=== PATIENT | male | born 1980 | race Caucasian/White ===

== ENCOUNTER → 2020-07-24 | Outpatient (CLI) | payer OTHER ==
[~2020-07-24] MED LIST: CIPR5DRO OP; OFLO5DRO33 EACH EAR
== END ==
LOC: CARD 11:46
PROVIDERS: ATTEND Nurse Practitioner Family
DX: R10.13 Epigastric pain (principal)
CPT/HCPCS: 93005

== ENCOUNTER 2020-08-31 05:31 | Outpatient (RCR) | payer OTHER ==
[~2020-08-31] VITALS: Ht 177.8 cm; Wt 117.0 kg
[~2020-08-31 05:31] MED LIST changes: +CETI10CA PO; +OMEP40CA27 PO
== END 2020-08-31 12:34 | disposition home or self-care (01) ==
LOC: PREOP 05:31
PROVIDERS: ATTEND Internal Medicine
DX: Z01.812 Encounter for preprocedural laboratory examination (principal); K21.9 Gastro-esophageal reflux disease without esophagitis; Z20.822 Contact with and (suspected) exposure to COVID-19
CPT/HCPCS: 87635

== ENCOUNTER 2020-09-04 07:34 | Day surgery (SDC) | payer OTHER ==
--- NOTE | 2020-08-30 16:39 | HISTORY AND PHYSICAL ---
DATE OF SERVICE: EGD HISTORY AND PHYSICAL HISTORY: The patient is a 40-year-old white male, who reports a 2-month history of heartburn type symptoms with some intermittent chest pain seems to be worse several hours after the evening meal. Occasionally, this woke him up from sleep. He denies any coughing, choking or dysphagia. He started taking twice a day H2 davidson therapy, but was still having to take several times a day. Symptoms have been a little better since initiation of proton pump inhibitor therapy last week. He denies melena or bright red blood per rectum. He denies any past history of peptic ulcer disease or similar symptoms. He was not aware of any major dietary change, but his weight was down 4.4 pounds over the last month. He reports some numbness over the lateral aspect of the left thumb only. No weakness or loss of dexterity reported. This has been going on for about the last two months. It has not gotten and he is not aware of any associated trauma. PHYSICAL EXAMINATION: GENERAL: Reveals pleasant white male, who did not appear to be in acute distress. VITAL SIGNS: Weight 261.4 pounds, blood pressure 142/94. CHEST: Clear. CARDIOVASCULAR: Regular rate and rhythm without murmur, S3 or S4. Mild epigastric discomfort to palpation noted without mass or organomegaly. No rebound or guarding noted. EXTREMITIES: Reveal no cyanosis, clubbing or edema. There is some subjective loss of sensation over the lateral aspect of the left thumb. 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 Phalen's and Tinel's sign negative. ASSESSMENT AND PLAN: 1. For further investigation of refractory GERD symptoms with chest pain and some weight loss, the patient is set up for EGD evaluation after discussion. 2. Discussed the importance of continued weight loss aid in overall health as well as reflux symptoms. We will continue Prilosec for now 20 mg daily. 3. Focal area of left lateral thumb numbness. Discussed if there was any evidence for progression to return for consideration for nerve conduction studies, but due to the fact that it has not gotten worse, has no other symptoms associated and is focal. We will continue to monitor for now. Continue to monitor conservatively for now. Job ID: [id number] DocumentID: [id number] Dictated Date: 08/30/2020 16:11:04 Vacuum Forming Machine Operator Date: 08/30/2020 16:36:47 Dictated By: ACACIA TAPIA MD
[~2020-09-04] VITALS: Ht 178 cm; Wt 117.0 kg
[2020-09-04] VITALS (12 sets, daily range): BP systolic 112–135; BP diastolic 64–86
[~2020-09-04 07:34] MED LIST changes: +LACTATED RINGERS 1,000 ML IV ONE
[2020-09-04] MEDS ORDERED: D5 LR IV SOLUTION 1,000 ML IV STA (07:47)
[2020-09-04] MEDS ORDERED: LIDOCAINE JELLY 2% 6 ML SYRINGE ONE (07:55)
[2020-09-04] MEDS ORDERED: MIDAZOLAM 5 MG/5 ML (VERSED) VIAL ONE (07:56)
[2020-09-04] MEDS ORDERED: fentaNYL INJ 100 MCG/2 ML AMP ONE (07:56)
[2020-09-04] MEDS ORDERED: HURRICAINE EXT TUBE (BENZOCAINE) ONE (07:56)
[2020-09-04] MEDS ORDERED: MIDAZOLAM 5 MG/5 ML (VERSED) VIAL IV ONE (08:00)
[2020-09-04] MEDS ORDERED: LACTATED RINGERS 1,000 ML IV SCH (08:00)
[2020-09-04] MEDS ORDERED: fentaNYL INJ 100 MCG/2 ML AMP IVP ONE (08:00)
[2020-09-04] MEDS ORDERED: LIDOCAINE JELLY 2% 6 ML SYRINGE MM PRN (08:00)
[2020-09-04] MEDS ORDERED: HURRICAINE EXT TUBE (BENZOCAINE) XX PRN (08:00)
--- NOTE | 2020-09-04 08:39 | Pre-Op Note & Conscious Sedat ---
Pre-Operative Progress Note H&P Reviewed The H&P was reviewed, patient examined and no changes noted. Date H&P Reviewed: Sep 04, 2020 Time H&P Reviewed: 07:55 Conscious Sedation Pre-Proced ASA Score 2 For ASA 3 and 4: Consider anesthesia and medical clearance. Also, for patients with a history of failed moderate sedation consider anesthesia. Airway Lungs Heart ASA score ASA 1: a normal healthy patient ASA 2: a patient with a mild systemic disease (mid diabetes, controlled hypertension, obesity ASA 3: a patient with a severe systemic disease that limits activity (angina, COPD, prior Myocardial infarction) ASA 4: a patient with an incapacitating disease that is a constant threat to life (CHF, renal failure) ASA 5: a moribund patient not expected to survive 24 hrs. (ruptured aneurysm) ASA 6: a declared brain- patient whose organs are being harvested. For emergent operations, add the letter E after the classification Mallampati Classification Grade 3 Sedation Plan Analgesia, Amnesia, Plan communicated to team members, Discussed options with patient/fam, Discussed risks with patient/fam The patient is an appropriate candidate to undergo the planned procedure, sedation, and anesthesia. The patient immediately re-assessed prior to indication. ACACIA TAPIA MD Sep 04, 2020 08:39
[2020-09-04] MEDS ORDERED: OMEP40CA27 PO (09:16)
--- NOTE | 2020-09-04 13:35 | OPERATIVE REPORT ---
DATE OF SERVICE: EGD SUMMARY EGD is performed for gastroesophageal reflux refractory to proton pump inhibitor therapy. DESCRIPTION OF PROCEDURE: The patient was placed in the left lateral decubitus position. The endoscope was inserted in the oral cavity and under direct visualization, the esophagus was intubated. Endoscope was passed down the esophagus through the stomach and second portion of the duodenum. A careful inspection was made as the endoscope was withdrawn. The patient tolerated the procedure well. FINDINGS: The posterior pharynx, epiglottis, true and false vocal folds and arytenoid aperture were unremarkable to visual inspection. The proximal, mid and distal esophagus were unremarkable. The Z line was distinct. There was no evidence to suggest Quiroz's, no evidence of rings, webs or strictures were noted. Photograph was obtained. The cardia and the fundus of the stomach were unremarkable. There was patchy antral erythema without evidence for ulceration. A biopsy was obtained and submitted for histopathology and Helicobacter evaluation. The pylorus and the pyloric channel were unremarkable. The duodenal bulb other than being small in size was unremarkable and second portion of duodenum was unremarkable as well with no evidence of peptic ulcer disease. Normal villous appearing architecture on gross inspection. ASSESSMENT: Mild antral gastritis with an otherwise normal EGD. No evidence for Quiroz's change was noted. Discussed lifestyle issues with strong recommendation for continued weight loss as major risk factor for reflux. For now, we will continue omeprazole 40 mg daily with histopathology and Helicobacter evaluation pending. Job ID: [id number] DocumentID: [id number] Dictated Date: 09/04/2020 09:12:45 Emergency Veterinary Assistant Date: 09/04/2020 13:34:36 Dictated By: ACACIA TAPIA MD [facility]
== END 2020-09-04 09:15 | disposition home or self-care (01) ==
LOC: ENDO 07:34
PROVIDERS: ATTEND Internal Medicine
DX: K29.60 Other gastritis without bleeding (principal); K21.9 Gastro-esophageal reflux disease without esophagitis; R20.0 Anesthesia of skin; Z79.899 Other long term (current) drug therapy

== ENCOUNTER → 2022-03-11 | Outpatient (CLI) | payer OTHER ==
[~2022-03-11] VITALS: Ht 180.3 cm; Wt 112.7 kg
[~2022-03-11] MED LIST changes: -LACTATED RINGERS 1,000 ML IV ONE; -OMEP40CA27 PO; +OMEP40CA6 PO
== END | disposition home or self-care (01) ==
LOC: PREOP 05:29
PROVIDERS: ATTEND Internal Medicine
DX: Z01.818 Encounter for other preprocedural examination (principal)

== ENCOUNTER 2022-03-14 09:30 | Day surgery (SDC) | payer OTHER ==
--- NOTE | 2022-03-10 15:42 | HISTORY AND PHYSICAL ---
DATE OF SERVICE: EGD HISTORY AND PHYSICAL DATE OF ADMISSION: 03/14/2022 HISTORY OF PRESENT ILLNESS: The patient is a 41-year-old white male, who noted the onset of black tarry stools about 2 per day three days ago. He has not felt weak or lightheaded with this. He reports he has had a knot in his stomach pointing a little bit above the level of the navel, gets a little bit better when he eats and then worse later. He has not been waking up with any symptoms. He denies aspirin or nonsteroidal use, but has had several rounds of prednisone for eustachian tube dysfunction and allergy symptoms by his nephrology nurse. He has no past history of peptic ulcer disease. A year and a half ago, he underwent EGD for significant reflux symptoms, at which time, he did not have evidence for erosive esophagitis or peptic ulcer disease. He has not been taking anything. He denies any lightheadedness or dizziness and no past history of known GI bleeding or anemia. PHYSICAL EXAMINATION: GENERAL: Reveals a white male. Normal skin coloration. No evidence for pallor. VITAL SIGNS: Blood pressure 132/66. Weight was up 4.8 pounds from two months ago to 248.6. Heart rate 70 and regular. CHEST: Clear. CARDIOVASCULAR: Reveals regular rate and rhythm without murmur, S3 or S4. He had epigastric and right upper quadrant discomfort to palpation without rebound or guarding. No mass or organomegaly noted. Bowel sounds normal. EXTREMITIES: Reveal no cyanosis, clubbing or edema. ASSESSMENT AND PLAN: Likely upper GI bleed, possible peptic ulcer disease secondary to steroids. We will initiate proton pump inhibitor therapy in the form of omeprazole 20 mg now then q.a.m. daily. Continue to avoid aspirin and nonsteroidal medications, Tylenol only should he require anything for pain. He is being set up for an EGD this Thursday and was instructed should he have melena associated with weakness or lightheadedness, he needs to go to the emergency room. Job ID: [id number] DocumentID: [id number] Dictated Date: 03/10/2022 14:40:46 Press Hand Supervisor Date: 03/10/2022 14:49:07 Dictated By: ACACIA TAPIA MD
[~2022-03-14] VITALS: Ht 180 cm; Wt 112.7 kg
[2022-03-14] MEDS ORDERED: LACTATED RINGERS 1,000 ML IV STA (09:31)
[2022-03-14] MEDS ORDERED: HURRICAINE EXT TUBE (BENZOCAINE) XX PRN (09:45)
[2022-03-14 09:47] VITALS: BP 138/82
--- NOTE | 2022-03-14 10:22 | Pre-Op Note & Conscious Sedat ---
Pre-Operative Progress Note Date H&P Reviewed: Mar 14, 2022 Time H&P Reviewed: 10:21 History & Physical: H&P Reviewed, Patient Examed, No changes noted Pre-Op Diagnosis: GI bleed Conscious Sedation Pre-Proced ASA Score 2 For ASA 3 and 4: Consider anesthesia and medical clearance. Also, for patients with a history of failed moderate sedation consider anesthesia. Airway Lungs Heart ASA score ASA 1: a normal healthy patient ASA 2: a patient with a mild systemic disease (mid diabetes, controlled hypertension, obesity ASA 3: a patient with a severe systemic disease that limits activity (angina, COPD, prior Myocardial infarction) ASA 4: a patient with an incapacitating disease that is a constant threat to life (CHF, renal failure) ASA 5: a moribund patient not expected to survive 24 hrs. (ruptured aneurysm) ASA 6: a declared brain- patient whose organs are being harvested. For emergent operations, add the letter E after the classification Mallampati Classification Grade 2 Sedation Plan Analgesia, Amnesia, Plan communicated to team members, Discussed options with patient/fam, Discussed risks with patient/fam The patient is an appropriate candidate to undergo the planned procedure, sedation, and anesthesia. The patient immediately re-assessed prior to indication. ACACIA TAPIA MD Mar 14, 2022 10:22
[2022-03-14] MEDS ORDERED: PROPOFOL INJECTION 50 ML IV ONE (10:48)
[2022-03-14] MEDS ORDERED: MIDAZOLAM 2 MG/2 ML (VERSED) VIAL ONE (10:48)
--- NOTE | 2022-03-14 11:05 | Progress Note-Post Operative ---
Post-Procedure Note Physician (s)/Senior Economist (s) Physician ACACIA TAPIA MD Pre-Procedure Diagnosis Pre-Procedure Diagnosis: GI bleed Post-Procedure Note Findings/Procedure Note Patient underwent EGD evaluation for evaluation of melena. The endoscope was inserted into the oral cavity and under direct visualization the esophagus is intubated. The endoscope was passed down the esophagus through the stomach into the second portion of the duodenum. A careful instruction was made as the endoscope was withdrawn. Findings: The posterior pharynx epiglottis arytenoid aperture and true and false vocal folds were unremarkable on gross inspection. The proximal mid and distal esophagus were unremarkable as well. The Z-line was distinct no evidence to suggest Quiroz's change or erosive esophagitis. The cardia fundus antrum and pylorus pyloric channel duodenal bulb second portion of the duodenum and the am garry were unremarkable on visual inspection. Assessment: Normal EGD. We will have the patient discontinue proton pump inhibitor therapy if he continues to have dark stools will obtain stool for occult blood if positive he will need colonoscopy. Post-Procedure Diagnosis Post-operative diagnosis: normal EGD ACACIA TAPIA MD Mar 14, 2022 11:05
[2022-03-14 11:06] VITALS: BP 111/58
[2022-03-14 11:11] VITALS: BP 113/62
[2022-03-14 11:15] VITALS: BP 113/62
--- NOTE | 2022-03-14 11:32 | Anesthesia-General Post-Op ---
MAC Patient Condition Mental Status/LOC: Same as Preop Cardiovascular: Satisfactory Nausea/Vomiting: Absent Respiratory: Satisfactory Pain: Controlled Complications: Absent Post Op Complications Complications None Follow Up Care/Instructions Patient Instructions None needed. Anesthesiology Discharge Order Discharge Order Patient is doing well, no complaints, stable vital signs, no apparent adverse anesthesia problems. No complications reported per nursing. JAIM SANDERS CRNA Mar 14, 2022 11:32
[2022-03-14 11:35] VITALS: BP 113/62
== END 2022-03-14 11:55 | disposition home or self-care (01) ==
LOC: ENDO 09:30
PROVIDERS: ATTEND Internal Medicine
DX: K92.1 Melena (principal); K21.9 Gastro-esophageal reflux disease without esophagitis; Z79.899 Other long term (current) drug therapy

== ENCOUNTER → 2023-04-27 | Outpatient (CLI) | payer OTHER | LOC: SLEEP 14:26 | PROVIDERS: ATTEND Nurse Practitioner | DX: R06.83 Snoring (principal) | CPT/HCPCS: G0399 ==